=== PATIENT | female | born 1980 | race Native Hawaiian/Other Pacific Islander ===

== ENCOUNTER 2016-09-08 16:57 | Outpatient (CLI) | payer OTHER | END 2016-09-08 19:12 | disposition home or self-care (01) | LOC: RAD 16:57 | DX: M25.561 Pain in right knee (principal) ==

== ENCOUNTER 2017-04-13 08:41 | Emergency (ER) | payer OTHER ==
[~2017-04-13] VITALS: Ht 160 cm; Wt 98.0 kg
[2017-04-13 08:50] VITALS: TEMP 98
[2017-04-13 09:11] LABS: PLATELET COUNT 261 K/uL (152-353)
[2017-04-13 09:20] LABS: POTASSIUM 4.1 mmol/L (3.6-5.2); SODIUM 136 mmol/L (136-145)
[2017-04-13 11:25] LABS: PARTIAL THROMBOPLASTIN TIME 27.2 SECONDS (24.5-33.6)
[2017-04-13 12:49] VITALS: BP 123/74
== END 2017-04-13 12:53 | disposition home or self-care (01) ==
LOC: ED 08:41
PROVIDERS: Family Medicine
DX: J06.9 Acute upper respiratory infection, unspecified (principal)
CPT/HCPCS: 36415; 80053; 82550; 84484; 85027; 85610; 85730; 87804; 93005; 99283

== ENCOUNTER 2017-09-02 07:59 | Outpatient (CLI) | payer OTHER | END 2017-09-02 19:24 | disposition home or self-care (01) | LOC: RAD 07:59 | DX: M13.852 Other specified arthritis, left hip (principal); M13.851 Other specified arthritis, right hip; M54.5 Low back pain ==

== ENCOUNTER 2018-11-29 15:19 | Outpatient (CLI) | payer OTHER | END 2018-11-29 20:11 | disposition home or self-care (01) | LOC: RAD 15:19 | DX: S99.822A Other specified injuries of left foot, initial encounter (principal) ==

== ENCOUNTER 2019-02-28 09:07 | Outpatient (CLI) | payer OTHER | END 2019-02-28 20:52 | disposition home or self-care (01) | LOC: RESP 09:07 | DX: G56.03 Carpal tunnel syndrome, bilateral upper limbs (principal); G56.21 Lesion of ulnar nerve, right upper limb | CPT/HCPCS: 95885; 95911 ==

== ENCOUNTER 2022-09-30 13:03 | Emergency (ER) | payer OTHER ==
[~2022-09-30] VITALS: Ht 160 cm; Wt 104.3 kg
[2022-09-30 13:09] VITALS: TEMP 98
[2022-09-30 13:34] LABS: PLATELET COUNT 284 K/uL (152-353)
[2022-09-30 13:43] LABS: POTASSIUM 3.4 mmol/L (3.6-5.2)
[2022-09-30 15:04] VITALS: BP 157/83
== END 2022-09-30 15:04 | disposition home or self-care (01) ==
LOC: ED 13:03
PROVIDERS: Family Medicine
DX: I10 Essential (primary) hypertension (principal); R51.9 Headache, unspecified
CPT/HCPCS: 36415; 80053; 84484; 85027; 93005; 99284

== ENCOUNTER 2022-11-06 09:09 | Outpatient (CLI) | payer OTHER | END 2022-11-06 20:25 | disposition home or self-care (01) | LOC: MAMMO 09:09 | PROVIDERS: ATTEND Nurse Practitioner Family | DX: R59.0 Localized enlarged lymph nodes (principal) | CPT/HCPCS: G0279 ==